=== PATIENT | male | born 1980 | race Two or more races ===

== ENCOUNTER 2017-02-13 07:20 | Emergency (ER) | payer BC ==
[~2017-02-13] VITALS: Ht 177.8 cm; Wt 81.6 kg
[2017-02-13 07:24] VITALS: BP 124/84
== END 2017-02-13 09:53 | disposition left against medical advice (07) ==
LOC: ER 07:20
DX: M25.561 Pain in right knee (principal); M79.89 Other specified soft tissue disorders; Z53.21 Procedure and treatment not carried out due to patient leaving prior to being seen by health care provider
CPT/HCPCS: 73721

== ENCOUNTER 2017-02-14 00:21 | Emergency (ER) | payer BC ==
[~2017-02-14] VITALS: Ht 177.8 cm; Wt 81.6 kg
[2017-02-14] MEDS ORDERED: ONDANSETRON HCL 4 MG/2 ML VIAL ONE (00:35)
[2017-02-14] MEDS ORDERED: IOHEXOL 300 MG/ML 100ML BOTTLE IJ ONE (00:46)
[2017-02-14 00:56] LABS: Basophils # (auto) 0 uL; Basophils % (auto) 0.4 % (0.0-2.0); DEFINITIVE SEE PRINTOUT; Eosinophils # (auto) 0.2 uL; Hemoglobin 14.3 g/dL (13.5-17.5); Lymphocytes # (auto) 1.2 uL; Lymphocytes % (auto) 21.9 % (10.0-50.0); Mean Corpuscular Hemoglobin 25.3 pg (28.0-32.0); Mean Corpuscular Hgb Conc. 31.8 g/dL (32.0-36.0); Mean Corpuscular Volume 79.5 fL (80.0-100.0); Mean Platelet Volume 6.8 fL (7.4-10.4); Monocytes # (auto) 0.8 uL; Monocytes % (auto) 13.8 % (0.0-12.0); Neutrophils # (auto) 3.5 uL; Neutrophils % (auto) 60.9 % (37.0-80.0); Platelet Count (auto) 387 10^3/uL (140-450); Red Cell Distribution Width 13.2 % (11.6-16.0); White Blood Cell 5.7 10^3/uL (4.4-10.8)
[2017-02-14] MEDS ORDERED: ONDANSETRON HCL 4 MG/2 ML VIAL IV ONE (01:00)
[2017-02-14 01:10] LABS: INR 1.05 (0.9-1.15); Partial Thromboplastin Time 29.6 sec (22.64-33.71); Prothrombin Time 11.4 sec (9.37-12.3)
[2017-02-14] MEDS ORDERED: SODIUM CHLORIDE 0.9% 2,000 ML IV ONE (01:15)
[2017-02-14 01:17] LABS: Albumin 3.8 g/dL (3.4-5.0); BUN/Creatinine Ratio 10.2; Calcium 8.6 mg/dL (8.5-10.1); Potassium 3.8 mmol/L (3.5-5.1)
[2017-02-14 01:20] LABS: Bilirubin, Total 0.2 mg/dL (0.2-1.0); Total Protein 7.8 g/dL (6.4-8.2)
[2017-02-14 02:35] VITALS: BP 100/50
== END 2017-02-14 02:42 | disposition home or self-care (01) ==
LOC: ER 00:21
DX: K57.30 Diverticulosis of large intestine without perforation or abscess without bleeding (principal); R19.7 Diarrhea, unspecified; E86.0 Dehydration; I26.99 Other pulmonary embolism without acute cor pulmonale
CPT/HCPCS: 36415; 51702; 74177; 80053; 82150; 83690; 85025; 85610; 85730; 96374; 99285; J2405; J7030; Q9967

== ENCOUNTER → 2018-08-01 | Outpatient (CLI) | payer BC ==
[2018-08-01 10:25] LABS: Basophils # (auto) 0 uL; Eosinophils # (auto) 0.1 uL; Lymphocytes # (auto) 0.9 uL; Monocytes # (auto) 0.3 uL; White Blood Cell 4.3 10^3/uL (4.4-10.8)
[2018-08-01 10:27] LABS: Basophils % (auto) 0.2 % (0.0-2.0); Hematocrit 46.8 % (41.0-53.0); Hemoglobin 15.2 g/dL (13.5-17.5); Lymphocytes % (auto) 20.5 % (10.0-50.0); Mean Corpuscular Hgb Conc. 32.4 g/dL (32.0-36.0); Mean Corpuscular Volume 80.2 fL (80.0-100.0); Monocytes % (auto) 6.9 % (0.0-12.0); Neutrophils % (auto) 70.4 % (37.0-80.0); Platelet Count (auto) 339 10^3/uL (140-450); Red Blood Cells 5.84 10^6/uL (4.5-5.90); Red Cell Distribution Width 13.6 % (11.8-14.3)
[2018-08-01 10:50] LABS: Albumin 4.1 g/dL (3.4-5.0); Calcium 8.9 mg/dL (8.5-10.1)
[2018-08-01 10:55] LABS: Bilirubin, Total 0.3 mg/dL (0.2-1.0); Total Protein 7.8 g/dL (6.4-8.2)
== END | disposition home or self-care (01) ==
LOC: LAB 09:41
PROVIDERS: ATTEND Internal Medicine
DX: Z00.00 Encounter for general adult medical examination without abnormal findings (principal)
CPT/HCPCS: 36415; 80053; 80061; 82306; 83036; 84402; 84403; 84436; 84443; 84480; 85025